=== PATIENT | male | born 1985 | race African-American/Black ===

== ENCOUNTER 2021-11-09 03:28 | Emergency (ER) | payer OTHER ==
[2021-11-09] MEDS ORDERED: Ketorolac Tromethamine 30 MG/ML VIAL ONE (04:34)
[2021-11-09] MEDS ORDERED: Diazepam 5 MG TAB ONE (04:34)
== END 2021-11-09 05:10 | disposition home or self-care (01) ==
LOC: ERS 03:28
DX: M54.50 Low back pain, unspecified (principal); Z79.899 Other long term (current) drug therapy
CPT/HCPCS: 96372; 99283; J1885